=== PATIENT | male | born 1995 | race Caucasian/White ===

== ENCOUNTER 2017-07-25 19:25 | Emergency (ER) | payer BC ==
[2017-07-25] MEDS ORDERED: Ondansetron ODT 8 MG TAB ONE (20:38)
[2017-07-25] MEDS ORDERED: Acetaminophen 500 MG TAB ONE (20:38)
[2017-07-25] MEDS ORDERED: Metoclopramide HCl 10 MG/2 ML VIAL ONE (21:35)
[2017-07-25] MEDS ORDERED: diphenhydrAMINE 50 MG/ML VIAL ONE (21:35)
== END 2017-07-25 21:07 | disposition home or self-care (01) ==
LOC: ERS 19:25
DX: B34.9 Viral infection, unspecified (principal)
CPT/HCPCS: 99283; J1200; J2765